=== PATIENT | female | born 1985 | race Caucasian/White ===

== ENCOUNTER → 2017-03-25 | Day surgery (SDC) | payer OTHER ==
[~2017-03-25] VITALS: Ht 160 cm; Wt 60.6 kg
[~2017-03-25] MED LIST: ATARAX25 MG PO; ATARAX50 MG PO; DICYCLOMINE HCL20 MG PO; EPIPEN0.3 MG IM; LITHIUM CARBON150 MG PO; NEURONTIN300 MG PO; PRILOSEC20 MG PO; PROAIR HFA8.5 GM INH; RISPERDAL0.5 MG PO; TYLENOL EXTRA500 MG PO; ZOFRAN4 MG PO
== END | disposition disaster alternative care site (69) ==
LOC: GPOC 03-15 09:00 → GEND 08:32 → GPOC 09:00
PROC: 0DB68ZX Excision of Stomach, Via Natural or Artificial Opening Endoscopic, Diagnostic (ICD-10-PCS; principal; 2017-03-25)
PROC: 0DBF8ZZ Excision of Right Large Intestine, Via Natural or Artificial Opening Endoscopic (ICD-10-PCS; 2017-03-25)
PROC: 3E0H8GC Introduction of Other Therapeutic Substance into Lower GI, Via Natural or Artificial Opening Endoscopic (ICD-10-PCS; 2017-03-25)
PROC: 0DBP8ZX Excision of Rectum, Via Natural or Artificial Opening Endoscopic, Diagnostic (ICD-10-PCS; 2017-03-25)
DX: K63.5 Polyp of colon (principal); K62.1 Rectal polyp; K20.9 Esophagitis, unspecified
CPT/HCPCS: J7030; J7120